=== PATIENT | female | born 1980 | race African-American/Black ===

== ENCOUNTER 2018-06-23 11:02 | Emergency (ER) | payer SELFPAY ==
[~2018-06-23 11:02] MED LIST: Iopamidol 370 76% 100 ML VIAL ONE
[2018-06-23 11:52] LABS: #Eosinphils 0.1 thou/uL (0.0-0.7); #Lymphocytes 1.8 thou/uL (1.20-3.40); #Monocytes 0.5 thou/uL (0.11-0.59); #Neutrophils 2.8 thou/uL (1.40-6.50); %Basophils 0.6 % (0.0-1.0); %Lymphocytes 34.4 % (21.0-51.0); %Monocytes 9.6 % (0.0-10.0); %Neutrophils 53.3 % (42.0-75.0); Mean Corpuscular HGB CONC 31.7 g/dL (32.0-36.0); Mean Corpuscular Hemoglobin 30.9 pg (27.0-31.0); Mean Corpuscular Volume 97.7 fL (78.0-98.0); Mean Platelet Volume 7.6 fL (7.4-10.4); Platelet Count 213 thou/uL (130-400); RBC Distribution Width 11.5 % (11.5-14.5); White Blood Cell (WBC) Count 5.3 thou/uL (4.8-10.8)
[2018-06-23 12:13] LABS: ALT (SGPT) 11 U/L (8-55); AST (SGOT) 16 U/L (5-34); Albumin 4.2 g/dL (3.5-5.0); Alkaline Phosphatase 107 U/L (40-150); Anion Gap 14 mmol/L (10-20); BUN (Urea Nitrogen) 8 mg/dL (7.0-18.7); Bilirubin, Total 0.3 mg/dL (0.2-1.2); Calc. Creatinine Clearance 0 mL/min (70-130); Calcium 9.8 mg/dL (7.8-10.44); Carbon Dioxide 28 mmol/L (22-29); Chloride 101 mmol/L (98-107); Estimated GFR-MDRD 85; Globulin 3.2 g/dL (2.4-3.5); Glucose 85 mg/dL (70-105); Potassium 3.6 mmol/L (3.5-5.1); Protein, Total 7.4 g/dL (6.0-8.3); Sodium 139 mmol/L (136-145)
--- NOTE | 2018-06-23 14:08 | CT ---
CT CHEST WITH IV CONTRAST: Date: 06/23/18 HISTORY: Chest pain. FINDINGS: There is good opacification of the thoracic aorta without aneurysm or dissection. The pulmonary arter ial vasculature is well opacified without filling defects to suggest pulmonary embolism. No pleural o r pericardial effusions are seen. There are a few scattered tiny lung nodules predominantly on the right measuring up to 4.0 mm. There is right paraspinal soft tissue density extending from superior aspect of T6 to the superior as pect of T9 vertebra. There is a sclerotic focus in the right side of the vertebral body of T7. There is a lucency in the head of the right rib and cortical thickening in the posteromedial aspect of this rib. IMPRESSION: 1. Findings involving the right paraspinal region and adjacent bones, may either be due to infection or malignancy/metastatic disease. 2. Tiny lung nodules are nonspecific and should be followed up with a CT scan in 6 months. POS: [facility]
== END 2018-06-23 13:53 | disposition home or self-care (01) ==
LOC: ERS 11:02
DX: M54.6 Pain in thoracic spine (principal)
CPT/HCPCS: 36415; 71260; 80053; 85025; Q9967

== ENCOUNTER 2020-11-17 13:27 | Emergency (ER) | payer SELFPAY ==
[2020-11-17] MEDS ORDERED: traMADol HCl 50 MG TAB ONE (15:32)
== END 2020-11-17 16:08 | disposition home or self-care (01) ==
LOC: ERS 13:27
DX: S93.402A Sprain of unspecified ligament of left ankle, initial encounter (principal); Z87.891 Personal history of nicotine dependence; W10.9XXA Fall (on) (from) unspecified stairs and steps, initial encounter